=== PATIENT | female | born 1970 | race Caucasian/White ===

== ENCOUNTER 2023-06-28 08:35 | Emergency (ER) | payer BC ==
[2023-06-28] MEDS: Ketorolac 30 MG/ML SDV IM ONE (09:10)
== END 2023-06-28 09:54 | disposition home or self-care (01) ==
LOC: JP.ED 08:35
DX: R07.89 Other chest pain (principal); F17.210 Nicotine dependence, cigarettes, uncomplicated; Z90.710 Acquired absence of both cervix and uterus; W01.0XXA Fall on same level from slipping, tripping and stumbling without subsequent striking against object, initial encounter
CPT/HCPCS: 71046; 96372; 99283; J1885

== ENCOUNTER 2024-06-03 17:31 | Emergency (ER) | payer BC ==
[2024-06-03] MEDS: HYDROmorphone 1 MG/ML Syringe IM ONE (18:44)
== END 2024-06-03 19:17 | disposition home or self-care (01) ==
LOC: JP.ED 17:31
DX: S82.142A Displaced bicondylar fracture of left tibia, initial encounter for closed fracture (principal); F17.210 Nicotine dependence, cigarettes, uncomplicated; X50.1XXA Overexertion from prolonged static or awkward postures, initial encounter
CPT/HCPCS: 73562; 96372; 99283; J1171

== ENCOUNTER 2025-01-09 08:14 | Day surgery (SDC) | payer BC ==
[2025-01-09 08:47] LABS: HEMATOCRIT 38.8 % (34.3-46.0); MEAN CORPUSCULAR HEMOGLOBIN 30.4 pg (31.6-35.5); MEAN CORPUSCULAR HGB CONC 33.5 g/dL (31.6-35.5); MEAN CORPUSCULAR VOLUME 90.9 fL (81.4-99.0); RED BLOOD CELL COUNT 4.27 M/uL (3.77-5.24); WHITE BLOOD CELL COUNT,WBC 5.7 K/uL (3.2-11.0)
[2025-01-09] MEDS: Nozin Nasal Sanitizer NASBOTH ONE (09:14)
[2025-01-09] MEDS ORDERED: Ondansetron 4 MG/2 ML SDV ONE (09:19)
[2025-01-09] MEDS ORDERED: Succinylcholine 200 MG/10 ML MDV ONE (09:19)
[2025-01-09] MEDS ORDERED: Propofol 200 MG/20 ML SDV ONE (09:19)
[2025-01-09] MEDS ORDERED: fentaNYL 250 MCG/5 ML SDV ONE (09:19)
[2025-01-09] MEDS ORDERED: Glycopyrrolate 0.2 MG/ML 5 ML MDV ONE (09:19)
[2025-01-09] MEDS ORDERED: Neostigmine Methylsulfate 10 MG/10 ML MDV ONE (09:19)
[2025-01-09] MEDS ORDERED: Dexamethasone 4 MG/ML SDV ONE (09:19)
[2025-01-09] MEDS ORDERED: Rocuronium 50 MG/5 ML Vial ONE (09:19)
[2025-01-09] MEDS: Lactated Ringers 1,000 ML IV SCH (09:27)
[2025-01-09 09:41] LABS: ALANINE AMINOTRANSFERASE,ALT 23 U/L (12-78); ALBUMIN 3.3 g/dL (3.4-5.0); ALKALINE PHOSPHATASE 75 U/L (46-116); ANION GAP 12.7 mmol/L (5.0-14.0); ASPARTATE AMNIOTRANSFERASE,AST 16 U/L (15-37); BILIRUBIN TOTAL 0.5 mg/dL (0.2-1.0); BLOOD UREA NITROGEN,BUN 9 mg/dL (7-18); CALCIUM 9.2 mg/dL (8.5-10.1); CARBON DIOXIDE,CO2 24 mmol/L (21-32); CHLORIDE,CL 109 mmol/L (100-108); EST CRCL DRUG DOSING (CG) 54.24 mL/min; ESTIMATED GFR 66 mL/min (>60); GLUCOSE RANDOM 105 mg/dL (74-106); POTASSIUM,K 3.7 mmol/L (3.6-5.2); PROTEIN TOTAL,TP 6.7 g/dL (6.4-8.2); SODIUM,NA 142 mmol/L (140-148)
[2025-01-09] MEDS ORDERED: fentaNYL 100 MCG/2 ML SDV ONE (10:11)
[2025-01-09] MEDS ORDERED: Ketorolac 30 MG/ML SDV ONE (10:59)
[2025-01-09] MEDS: ceFAZolin 2 GM in Premix Bag 1 BAG IV ONE (11:10)
[2025-01-09] MEDS: Bupivacaine 0.5% 30 ML SDV ONE (11:58)
[2025-01-09] MEDS ORDERED: Sugammadex Sodium 200 MG/2 ML VIAL IV ONE (12:06)
[2025-01-09] MEDS: Acetaminophen/HYDROcodone 325-5 MG Tab PO PRN (13:21)
== END 2025-01-09 13:48 | disposition home or self-care (01) ==
LOC: JP.SDS 08:14
PROVIDERS: ATTEND Specialist
DX: M94.262 Chondromalacia, left knee (principal); M25.862 Other specified joint disorders, left knee; K21.9 Gastro-esophageal reflux disease without esophagitis; E66.9 Obesity, unspecified
CPT/HCPCS: 29877; 29999; 36415; 80053; 85027; A9270; J0330; J0665; J0690; J1100; J1596; J1885; J2405; J2704; J2710; J3010; J7120; 01400-QZ; J3490